=== PATIENT | female | born 1935 | race Caucasian/White ===

== ENCOUNTER 2018-06-29 08:06 | Emergency (ER) | payer OTHER, MEDICARE ==
[~2018-06-29] VITALS: Ht 170.2 cm; Wt 70.3 kg
[~2018-06-29 08:06] MED LIST: CALTRATE-600600 MG PO; EVISTA60 MG PO; NORCO 10/325 TA1 TA1 PO; SYNTHROID25 MCG PO; TENORMIN50 MG PO; ZETIA10 MG PO
[2018-06-29 08:07] VITALS: Ht 170.2 cm; Wt 70.3 kg
[2018-06-29 09:30] LABS: BASOPHILS 0.2 % (0-2); EOSINOPHILS 0 % (0-7); HEMATOCRIT 41.3 % (36.0-48.0); IMMATURE GRANULOCYTES 0.2 % (0-5); LYMPHOCYTES 15.6 % (15-50); MCH 29.6 pg (26.0-34.0); MCHC 33.9 g/dL (31.0-37.0); MCV 87.3 fL (80.0-100.0); MEAN PLATELET VOLUME 12.1 fL (7.4-10.4); MONOCYTES 12.9 % (2-11); NEUTROPHILS 71.1 % (40-80); PLATELET COUNT 138 10x3/uL (130-400); RBC 4.73 10x6/uL (4.00-5.40); RDW 12.5 % (11.5-14.5); WBC 4.7 10x3/uL (4.8-10.8)
[2018-06-29 09:43] LABS: ALBUMIN 2.9 g/dL (3.4-5.0); ANION GAP 15.1 mmol/L (8-16); BILIRUBIN - TOTAL 0.58 mg/dL (0.2-1.3); CALCIUM 8.6 mg/dL (8.5-10.1); CARBON DIOXIDE 24.7 mmol/L (21.0-32.0); CREATININE - SERUM 0.9 mg/dL (0.6-1.3); POTASSIUM - SERUM 3.8 mmol/L (3.5-5.1); PROTEIN - SERUM 7.3 g/dL (6.4-8.2)
[2018-06-29 10:01] LABS: APPEARANCE CLEAR (CLEAR); BILIRUBIN NEGATIVE (NEGATIVE); COLOR YELLOW (YELLOW); GLUCOSE NEGATIVE (NEGATIVE); KETONE MODERATE mg/dL (NEGATIVE); NITRITE NEGATIVE (NEGATIVE); PROTEIN NEGATIVE (NEGATIVE); SPECIFIC GRAVITY 1.025 (1.005-1.020); UROBILINOGEN NORMAL (NORMAL)
[2018-06-29] MEDS ORDERED: TAMIFLU75 MG PO (11:44)
[2018-06-29 14:14] VITALS: BP 151/88
== END 2018-06-29 12:53 ==
LOC: D.ER 08:06
PROVIDERS: Family Medicine
DX: J09.X2 Influenza due to identified novel influenza A virus with other respiratory manifestations (principal); E86.0 Dehydration; R05 Cough; R41.0 Disorientation, unspecified

== ENCOUNTER 2018-07-07 18:15 | Inpatient (IN) | payer MEDICARE, OTHER ==
[~2018-07-07] VITALS: Ht 170.2 cm; Wt 68.0 kg
[~2018-07-07 18:15] MED LIST changes: +TAMIFLU75 MG PO
[2018-07-07 19:00] VITALS: BP 148/82
--- NOTE | 2018-07-07 19:02 | NUR ---
PT RESTING ON BED. PT AFEBRILE AT THIS TIME, PT TEMP 98.8.
[2018-07-07 19:05] LABS: APPEARANCE HAZY (CLEAR); BILIRUBIN NEGATIVE (NEGATIVE); COLOR YELLOW (YELLOW); GLUCOSE NEGATIVE (NEGATIVE); KETONE SMALL mg/dL (NEGATIVE); NITRITE NEGATIVE (NEGATIVE); PROTEIN NEGATIVE (NEGATIVE); SPECIFIC GRAVITY 1.015 (1.005-1.020); UROBILINOGEN NORMAL (NORMAL)
[2018-07-07 19:28] LABS: BACTERIA MODERATE /hpf (NONE SEEN); EPITHELIAL CELLS OCC /hpf (0-5); RED CELLS - URINE 0-5 /hpf (0-5); WHITE CELLS - URINE >50 /hpf (0-5)
[2018-07-07 19:38] LABS: BASOPHILS 0.2 % (0-2); EOSINOPHILS 0 % (0-7); HEMOGLOBIN 13.6 g/dL (12-16); IMMATURE GRANULOCYTES 0.4 % (0-5); MCH 29.9 pg (26.0-34.0); MCHC 34.9 g/dL (31.0-37.0); MCV 85.7 fL (80.0-100.0); MEAN PLATELET VOLUME 11.1 fL (7.4-10.4); MONOCYTES 9.7 % (2-11); NEUTROPHILS 68.7 % (40-80); RBC 4.55 10x6/uL (4.00-5.40); RDW 12.4 % (11.5-14.5); WBC 5.7 10x3/uL (4.8-10.8)
[2018-07-07 19:38] LABS: ALBUMIN 2.7 g/dL (3.4-5.0); BILIRUBIN - TOTAL 0.6 mg/dL (0.2-1.3); CALCIUM 8.6 mg/dL (8.5-10.1); CARBON DIOXIDE 25.8 mmol/L (21.0-32.0); CREATININE - SERUM 0.9 mg/dL (0.6-1.3); POTASSIUM - SERUM 3.8 mmol/L (3.5-5.1); PROTEIN - SERUM 7.1 g/dL (6.4-8.2)
[2018-07-07 19:39] LABS: PLATELET COUNT 169 10x3/uL (130-400)
--- NOTE | 2018-07-07 20:20 | NUR ---
PT ASSISTED TO BEDSIDE COMMODE. PT TOLERATED WELL.
--- NOTE | 2018-07-07 20:38 | NUR ---
PT RESTING ON BED, PT UPDATED ON PLAN OF CARE. NO S/S OF ACUTE DISTRESS NOTED AT THIS TIME.
[2018-07-07 20:42] LABS: CREATINE KINASE 53 UL (21-215); MAGNESIUM - SERUM 1.6 mg/dL (1.8-2.4); PRO BNP 706 pg/mL (0-450)
[2018-07-07 20:43] LABS: TROPONIN-I < 0.017 ng/mL (0.000-0.060)
[2018-07-07 21:06] LABS: CKMB 2.9 U/L (0.0-3.6)
--- NOTE | 2018-07-07 21:30 | NUR ---
ROCEPHIN INFUSION COMPLETE
--- NOTE | 2018-07-07 22:28 | NUR ---
RECIEVED REPORT FROM ELLIOTT SCHNEIDER IN ER. BROUGHT TO FLOOR AT 2155 ON STRETCHER BY HOSPITAL STAFF. ALERT AND ORIENTED AND UP AD QUANG. VERY [place]. PLACED IN DROPLET ISOLATION R/T POSITIVE FOR INFLUENZA A AND B. IV TO LEFT FA WITH NS INFUSING AT 125/HR. REPORTED BY ER SCREAMS WHEN TOUCHED. UNSURE IF ITS FROM PAIN OR SCARED D/T BEING [place]AR[place].
--- NOTE | 2018-07-07 23:06 | NUR ---
RECIEVED REPORT FROM ELLIOTT SCHNEIDER IN ER. ARRIVED ON STRETCHER ASSISTED BY STAFF. ALERT AND CONFUSED. UNABLE TO TELL HER NAME,PLACE YEAR OR WHY SHE IS HERE. HAS A FREQUENT COUGH. PLACED IN DROPLET ISOLATION R/T POSITIVE FOR INFLUENZA A AND B. IV TO LEFT FA INFUSING NS AT 125/HR. AZITHROMAX STARTED AND INFUSING AT THIS TIME. PT DOES SCREAM ( NOT LOUD) WHEN TOUCHED. PICKING AT IV SITE. EXPLAINED TO LEAVE IT ALONE SO IT DOES'NT HAVE TO BE RELACED. UNSURE IF SHE UNDERSTANDS AT THIS TIME. VERY FOND DU LAC AND WILL REPEAT WHAT YOU SAY IF ASKED. UNABLE TO ANSWER QUESTIONS AT THIS TIME.
[2018-07-08 00:52] VITALS: BP 140/62; BMI 23.7
[2018-07-08 04:00] VITALS: BP 149/62
[2018-07-08 05:15] LABS: BASOPHILS 0.2 % (0-2); EOSINOPHILS 0.2 % (0-7); HEMATOCRIT 37.2 % (36.0-48.0); HEMOGLOBIN 12.8 g/dL (12-16); IMMATURE GRANULOCYTES 0.6 % (0-5); MCH 29.7 pg (26.0-34.0); MCHC 34.4 g/dL (31.0-37.0); MCV 86.3 fL (80.0-100.0); MEAN PLATELET VOLUME 11.4 fL (7.4-10.4); MONOCYTES 9.3 % (2-11); NEUTROPHILS 62.7 % (40-80); PLATELET COUNT 169 10x3/uL (130-400); RBC 4.31 10x6/uL (4.00-5.40); RDW 12.5 % (11.5-14.5); WBC 5.2 10x3/uL (4.8-10.8)
[2018-07-08 05:36] LABS: CALC OSMOLALITY 270 mosm/kg (275-300); CARBON DIOXIDE 20.5 mmol/L (21.0-32.0); CHLORIDE - SERUM 101 mmol/L (98-107); CREATININE - SERUM 0.6 mg/dL (0.6-1.3); GLUCOSE 105 mg/dL (74-106); POTASSIUM - SERUM 3.6 mmol/L (3.5-5.1); SODIUM 136 mmol/L (136-145); UREA NITROGEN 10 mg/dL (7-18); eGFR NON AFRICAN AMERICAN > 90 mL/min (90-120)
[2018-07-08 07:30] VITALS: BP 151/64
--- NOTE | 2018-07-08 08:48 | NUR ---
AM MEDS GIVEN AT THIS TIME. PT HAD NO TROUBLE SWALLOWING PILL. IVPB ROCEPHIN HUNG AT THIS TIME. HELPED PT TO BATHROOM AND BACK TO BED. PT DENIES ANY OTHER NEEDS AT THIS TIME. CALL LIGHT IN REACH, BED ALARM ON. NAD NOTED, WILL CONTINUE TO MONITOR.
[2018-07-08 11:30] VITALS: BP 163/76
--- NOTE | 2018-07-08 12:00 | NUR ---
HELPED PT TO BATHROOM AND BACK TO BED, PT DENIES ANY OTHER NEEDS AT THIS TIME. CALL LIGHT IN REACH, BED ALARM ON, NAD NOTED, WILL CONTINUE TO MONITOR.
--- NOTE | 2018-07-08 13:51 | NUR ---
PT RESTING COMFORTABLY IN BED, CALL LIGHT IN REACH, BED ALARM ON, NAD NOTED, WILL CONTINUE TO MONITOR.
[2018-07-08 15:30] VITALS: BP 160/78
--- NOTE | 2018-07-08 15:30 | NUR ---
PROVIDED SUPA WADE WITH PT'S SON'S PHONE NUMBER, WHO WANTS AN UPDATE REGARDING PT'S CONDITION.
--- NOTE | 2018-07-08 19:30 | NUR ---
RECEIVED REPORT, WILL ASSUME CARE OF PT, ASSIST PT TO RESTROOM, CHANGED LINEN, ASSIST PT BACK TO BED, BED IS LOW, SRX2, CALL LIGHT IN REACH, WILL CONTINUE PLAN OF CARE, BED ALARM IS ON
[2018-07-08 21:53] VITALS: BP 164/70
--- NOTE | 2018-07-09 02:29 | NUR ---
I have reviewed this patient and I concur with the Shift Assessment completed by the Licensed Practical Nurse today this shift.
--- NOTE | 2018-07-09 03:34 | NUR ---
BED ALARM GOING OFF, ASSISTED PT TO BATHROOM AND BACK TO BED, CALL LIGHT IN REACH, BED ALARM IS BACK ON
[2018-07-09 04:53] VITALS: BP 183/87
[2018-07-09 07:18] LABS: ANION GAP 17.9 mmol/L (8-16); CALCIUM 8.7 mg/dL (8.5-10.1); CARBON DIOXIDE 22.5 mmol/L (21.0-32.0); MAGNESIUM - SERUM 1.8 mg/dL (1.8-2.4); POTASSIUM - SERUM 3.4 mmol/L (3.5-5.1)
[2018-07-09 07:20] LABS: CREATININE - SERUM 0.8 mg/dL (0.6-1.3)
[2018-07-09 07:35] LABS: BASOPHILS 0.2 % (0-2); EOSINOPHILS 0 % (0-7); HEMATOCRIT 41.5 % (36.0-48.0); HEMOGLOBIN 14.1 g/dL (12-16); IMMATURE GRANULOCYTES 0.8 % (0-5); LYMPHOCYTES 15.9 % (15-50); MCV 85.2 fL (80.0-100.0); MEAN PLATELET VOLUME 12.1 fL (7.4-10.4); MONOCYTES 1.5 % (2-11); NEUTROPHILS 81.6 % (40-80); PLATELET COUNT 173 10x3/uL (130-400); RBC 4.87 10x6/uL (4.00-5.40); RDW 12.6 % (11.5-14.5); WBC 4.7 10x3/uL (4.8-10.8)
[2018-07-09 08:50] VITALS: BP 196/100
[2018-07-09 11:53] VITALS: BP 171/79
--- NOTE | 2018-07-09 12:00 | NUR ---
ALERT AND ORIENTED X4. [place]. OBSERVED UP OUT OF BED WITHOUT ASSISTANCE, TURNING BED ALARM OFF. IV TUBING TWISTED. DISCONNECT IV INFUSION. ENCOURAGE TO CALL FOR HELP WHEN OUT OF BED TO PREVENT FALL. PATIENT LAUGHS SAYING, "OK." CONTINUE PLAN OF CARE AND SAFETY PRECAUTIONS.
[2018-07-09 12:42] VITALS: Ht 170.2 cm; Wt 68.0 kg
[2018-07-09 15:42] VITALS: BP 165/94
--- NOTE | 2018-07-09 16:56 | NUR ---
FAMILY RETURN TO ROOM. PATIENT UP OUT OF BED. REQUEST FALL PRECAUTIONS WAIVER FORM SIGNED DUE TO NONCOMPLIANCE WITH PRECAUTIONS. ROBERT GIRON) REFUSED SIGNING. INITIATE FALL PRECAUTIONS AND ENCOURAGE TO USE CALL LIGHT. BED ALARM ON. CONTINUE PLAN OF CARE AND SAFETY PRECAUTIONS.
--- NOTE | 2018-07-09 17:25 | NUR ---
PATIENT ARGUING WITH FAMILY ABOUT GOING OUTSIDE ROOM. EXPLAIN TO PATIENT WHY UNABLE TO LEAVE ROOM DUE TO RISK FOR INFECTING OTHERS IN THE HOSPITAL. PATIENT LAUGHS WHILE RETURNING TO BED.
--- NOTE | 2018-07-09 18:55 | NUR ---
1819-BEGAN LEAVING ROOM, AMBULATING IN [place]. DIRECT BACK TO ROOM. EXPLAIN RISK FOR OTHER PEOPLE TO GET FLU IF OUT IN [place]. ASSIST BACK TO BED. BED ALARM ON. POA REFUSE TO STAY WITH PATIENT. 1824-LEAVING ROOM AGAIN. ASSIST BACK TO ROOM. PATIENT BECOMES COMBATIVE. CALL INFORMING OF CURRENT SITUATION. JASS BED ORDERED AND GEODON IM 5mg. 1834-GEODON ADMINISTERED ORDERED. PATIENT KICKING AND HITTING STAFF. ATTEMPT TO CALM PATIENT UNSUCCESSFUL. CONTIUES TRYING TO LEAVE ROOM. WAITING FOR JASS BED TO ARRIVE TO FLOOR. TWO PERSON MONITORING AT BEDSIDE.
--- NOTE | 2018-07-09 20:00 | NUR ---
RECIEVED IN JASS BED. CONTINUES TO CONFUSED. ALERT AND ORIENTED TO PERSON ONLY. REPORTED THAT GOT HERSELF DRESSED AND GRABBED HER PURSE AND STATED SHE WAS LEAVING. POA REFUSED TO SIGN AMA OR STAY AT BEDSIDE. AWARE OF NEW ORDER FOR JASS BED. PT YELLING OUT FOR SOME TO HELP HER. UNABLE TO REDIRECT AT THIS TIME. NO S/S OF PAIN OBSERVED.
[2018-07-09 21:03] VITALS: BP 173/80
--- NOTE | 2018-07-09 22:00 | NUR ---
RESTING IN JASS BED WITH EYES OPEN. ALERT AND ORIENTED TO PERSON ONLY. MUCH CALMER. TOOK MEDICATIONS WITHOUT DIFFICULTY. FLUIDS OFFERED AND ACCEPTED. DENIES ANY PAIN. IV TO RIGHT WRIST WITH AZITHROMYCIN INFUSING AT THIS TIME.
--- NOTE | 2018-07-09 23:41 | NUR ---
PT PULLED IV OUT. CLOTHING AND BEDDING WET. CHANGED CLOTHING AND BEDDING. PT STATES ' I LIKE THESE OLD TENTS".
[2018-07-10] VITALS: BP 145/64
--- NOTE | 2018-07-10 02:09 | NUR ---
RESTING IN BED WITH EYES CLOSED. NO S/S OF DISTRESS OBSERVED. RIGHT FA REMAINS SWOLLEN AND RED. NO IV ACCESS AT THIS TIME.
--- NOTE | 2018-07-10 02:35 | NUR ---
RESTING IN BED WITH EYES CLOSED AT THIS TIME. RESP EVEN AND UNLABORED. NO S/S OF DISTRESS OBSERVED.
--- NOTE | 2018-07-10 04:00 | NUR ---
RESTING IN BED WITH EYES CLOSED. NO S/S OF DISTRESS OBSERVED.
--- NOTE | 2018-07-10 05:34 | NUR ---
REFUSED AM MEDICATION. NO IV ACCESS. WILL REPORT TO ONCOMMING. DIANNE STATED PT BECAME COMBATIVE WHEN ATTEMPTING TO CHANGE HER THIS AM.
[2018-07-10 06:25] VITALS: BP 178/94
--- NOTE | 2018-07-10 07:13 | NUR ---
ALERT AND ORIENTED X2. SITTING UP IN JASS BED. ASKING WHAT HAPPENED. EXPLAIN EVENTS LEADING TO JASS BED AND PATIENT BEING COMBATIVE. VITALS STABLE. RECIEVING UPDRAFT TREATMENT. ZIPPERS CLOSED ON JASS BED. CONTINUE PLAN OF CARE AND SAFETY PRECAUTIONS.
[2018-07-10 08:01] LABS: ANION GAP 17.9 mmol/L (8-16); CALCIUM 9.1 mg/dL (8.5-10.1); CARBON DIOXIDE 21.1 mmol/L (21.0-32.0); MAGNESIUM - SERUM 1.9 mg/dL (1.8-2.4)
[2018-07-10 08:04] LABS: HEMATOCRIT 38.9 % (36.0-48.0); HEMOGLOBIN 13.5 g/dL (12-16); MCH 29.3 pg (26.0-34.0); MCHC 34.7 g/dL (31.0-37.0); MCV 84.4 fL (80.0-100.0); MEAN PLATELET VOLUME 11.8 fL (7.4-10.4); PLATELET COUNT 240 10x3/uL (130-400); RBC 4.61 10x6/uL (4.00-5.40); RDW 12.7 % (11.5-14.5)
--- NOTE | 2018-07-10 09:13 | NUR ---
ALERT AND ORIENTED X3. ASSIST OOB TO RESTROOM. ASSIST TO CHAIR WITH JSAS ALARM ON TO EAT BREAKFAST. CONTINUE TO MONITOR AND SAFETY PRECAUTIONS.
[2018-07-10 09:24] LABS: LYMPHOCYTES 9 % (15-50); MONOCYTES 12 % (2-11); NEUTROPHILS 75 % (40-80); PLATELET ESTIMATE NORMAL
[2018-07-10 09:25] LABS: ANISOCYTOSIS OCC
--- NOTE | 2018-07-10 11:30 | NUR ---
SITTING UP IN CHAIR. ALERT TO PERSON AND PLACE. [place]. JASS ALARM ON. DENIES ANY NEEDS. CONTINUE PLAN OF CARE AND SAFETY PRECAUTIONS.
[2018-07-10 13:13] VITALS: BP 160/77
--- NOTE | 2018-07-10 13:30 | NUR ---
ALERT. CHAIR ALARM GOING OFF. TRYING TO LEAVE ROOM. REDIRECT IN ROOM. RETURN TO JASS BED. REMAINS FREE FROM INJURY. CONTINUE PLAN OF CARE AND SAFETY PRECAUTIONS.
--- NOTE | 2018-07-10 14:03 | MORECARE ---
CASE MANAGEMENT DISCHARGE SUMMARY PATIENT: JENNIFER ROGERS UNIT: [id number] ADM DATE: 07/07/18 AGE: 82 : 37 SEX: F ROOM/BED: D.210 AUTHOR: AIDAN MARTIN PHYSICIAN: REFERRING PHYSICIAN: ZENOBIA LEYVA MD DATE OF SERVICE: 07/10/18 Discharge Plan Patient Name: JENNIFER ROGERS Facility: [facility]:[place] : 1935 Planned Disposition: Anticipated Discharge Date: Discharge Date: Expected LOS: Initial Reviewer: [email or web address] Initial Review Date: 07/10/2018 Generated: 07/10/18 3:03 pm Patient Name: JENNIFER ROGERS Page 32713 at 1403 All edits/amendments must be made on the electronic document DICTATION DATE: 07/10/18 140 HEAD MEN'S TENNIS COACH: JURGEN 07/10/18 1403 RPT#: [id number] DC DATE: STATUS: ADM IN [facility] [address] [place] [address] END OF REPORT
--- NOTE | 2018-07-10 14:11 | MORECARE ---
CASE MANAGEMENT DISCHARGE SUMMARY PATIENT: JENNIFER ROGERS UNIT: [id number] ADM DATE: 07/07/18 AGE: 82 : 37 SEX: F ROOM/BED: D.0299 AUTHOR: VERONICA,DOC PHYSICIAN: REFERRING PHYSICIAN: ZENOBIA LEYVA MD DATE OF SERVICE: 07/10/18 Discharge Plan Patient Name: JENNIFER ROGERS Facility: [facility]:[place] : 1935 Planned Disposition: Anticipated Discharge Date: Discharge Date: Expected LOS: Initial Reviewer: [email or web address] Initial Review Date: 07/10/2018 Generated: 07/10/18 3:11 pm Comments DCP- Discharge Planning Updated by [email or web address]: Cornelia Fong on 07/10/18 1:[address] Patient Name: JENNIFER ROGERS Admission Status: ER Accout number: [id number] Admission Date: 07-07-2018 : 1935 Admission Diagnosis:SHORTNESS OF BREATH Attending: ZENOBIA LEYVA Current LOS: 3 Anticipated DC Date: Planned Disposition: Primary Insurance: MEDICARE PART A ONLY Discharge Planning Comments: CM MET WITH PATIENT'S QUINTON/CAMMY SAN ABOUT DC PLANNING/NEEDS. SHE STATES SHE WOULD LIKE HER AUNT TO BE DISCHARGED BACK TO [facility] TODAY. STATES SHE WILL BE HERE ANOTHER WEEK AND COULD CHECK ON HER. SHE THINKS THE HOSPITAL STAY IS CAUSING HER CONFUSION. RN IS CONTACTING MD TO SEE IF SHE CAN DC TODAY. CM WILL FOLLOW AND ASSIST NEEDED WITH DC PLANNING/NEEDS. Payroll Officer: Cornelia Fong DCPIA - Discharge Planning Initial Assessment Updated by [id number]: Cornelia Fong on 07/10/18 2:04 pm * PCP JACKIE * Preadmission Environment Assisted Living * Facility Name [facility] * ADLs Partial Dependent * Partial ADLs (Assistance needed) Medication Management * Equipment Nebulizer Rolling Walker * List name and contact numbers for known caregivers / representatives who currently or will assist patient after discharge: LAURA AMES, * Community resources currently utilized Assisted Living * Additional services required to return to the preadmission environment? No * Can the patient safely return to the preadmission environment? Yes * Has this patient been hospitalized within the prior 30 days at any hospital? No Last DP export: 07/10/18 1:03 p Patient Name: JENNIFER ROGERS Page [phone] at 1411 All edits/amendments must be made on the electronic document DICTATION DATE: 07/10/181410 HUMAN RESOURCE OFFICER: JURGEN 07/10/181410 RPT#: [id number] DC DATE: STATUS: ADM IN [facility] [address] [place] [address] END OF REPORT
[2018-07-10 16:41] VITALS: BP 168/78
[2018-07-10] MEDS ORDERED: ZITHROMAX500 MG PO (17:30)
--- NOTE | 2018-07-10 18:02 | NUR ---
SPOKE WITH MITZI AT [facility] [phone]. OK TO ACCEPT BACK TO FACILITY. [facility] PATRICK WILL TRANSPORT. KRISTIE CALLED INTO [facility] ON AIRPORT PER CELINA'S REQUEST.
--- NOTE | 2018-07-10 18:37 | NUR ---
DISCHARGE INSTRUCTIONS GIVEN TO CELINA GIRON). DISCHARGE PAPERS SIGNED ON CHART. ESCORT TO RIDE VIA WHEELCHAIR. REMAINS FREE FROM INJURY.
--- NOTE | 2018-07-11 10:37 | MORECARE ---
CASE MANAGEMENT DISCHARGE SUMMARY PATIENT: JENNIFER ROGERS UNIT: [id number] ADM DATE: 07/07/18 AGE: 82 : 37 SEX: F ROOM/BED: D.8232 AUTHOR: AIDAN MARTIN PHYSICIAN: REFERRING PHYSICIAN: ZENOBIA LEYVA MD DATE OF SERVICE: 07/11/18 Discharge Plan Patient Name: JENNIFER ROGERS Facility: [facility]:[place] : 1935 Planned Disposition: Assisted Living Anticipated Discharge Date: 07/11/18 Discharge Date: 07/10/2018 Expected LOS: 4 Initial Reviewer: [email or web address] Initial Review Date: 07/10/2018 Generated: 07/11/18 11:37 am Comments DCP- Discharge Planning Updated by [email or web address]: Cornelia Fong on 07/10/18 1:[address] Patient Name: JENNIFER ROGERS Admission Status: ER Accout number: [id number] Admission Date: 07-07-2018 : 1935 Admission Diagnosis:SHORTNESS OF BREATH Attending: ZENOBIA LEYVA Current LOS: 3 Anticipated DC Date: Planned Disposition: Primary Insurance: MEDICARE PART A ONLY Discharge Planning Comments: CM MET WITH PATIENT'S QUINTON/CAMMY SAN ABOUT DC PLANNING/NEEDS. SHE STATES SHE WOULD LIKE HER AUNT TO BE DISCHARGED BACK TO [facility] TODAY. STATES SHE WILL BE HERE ANOTHER WEEK AND COULD CHECK ON HER. SHE THINKS THE HOSPITAL STAY IS CAUSING HER CONFUSION. RN IS CONTACTING MD TO SEE IF SHE CAN DC TODAY. CM WILL FOLLOW AND ASSIST NEEDED WITH DC PLANNING/NEEDS. Network Systems Engineer: Cornelia Fong DCPIA - Discharge Planning Initial Assessment Updated by [email or web address]: Cornelia Fong on 07/10/18 2:04 pm * PCP JACKIE * Preadmission Environment Assisted Living * Facility Name [facility] * ADLs Partial Dependent * Partial ADLs (Assistance needed) Medication Management * Equipment Nebulizer Rolling Walker * List name and contact numbers for known caregivers / representatives who currently or will assist patient after discharge: LAURA AMES, * Community resources currently utilized Assisted Living * Additional services required to return to the preadmission environment? No * Can the patient safely return to the preadmission environment? Yes * Has this patient been hospitalized within the prior 30 days at any hospital? No Coverage Notice Reviewer: [email or web address] Shaka Fong Notice Issued Date-Time: 07/10/2018 16:59 Notice Type: IM Discharge Notice Notice Delivered To: Family Member Relationship to Patient: Niece Longwall Headgate Operator Name: poa Delivery Method: HAND - Hand Delivered Carol Days: Prior Verbal Notification: Recipient Understood Notice: Yes Recipient Signature: Yes Med Rec Note Co-signed by Attending: Coverage Notice Comment: Last DP export: 07/10/18 1:11 p Patient Name: JENNIFER ROGERS Page [phone] at 1037 All edits/amendments must be made on the electronic document DICTATION DATE: 07/11/18 1036 RIB STIFFENER AND HEEL DIPPER: JURGEN 07/11/18 1036 RPT#: [id number] DC DATE:07/10/18 STATUS: DIS IN [facility] [address] [place] [address] END OF REPORT
== END 2018-07-10 18:38 | disposition home or self-care (01) | DRG 193 ==
LOC: D.ER 18:15 → D.M2 20:42 → D.EDHOLD 20:42 → D.M2 21:32
PROVIDERS: Family Medicine; ADMIT Emergency Medicine; ATTEND Emergency Medicine
DX: J10.00 Influenza due to other identified influenza virus with unspecified type of pneumonia (principal); J96.01 Acute respiratory failure with hypoxia; G92 Toxic encephalopathy; J44.1 Chronic obstructive pulmonary disease with (acute) exacerbation; J44.0 Chronic obstructive pulmonary disease with (acute) lower respiratory infection; N39.0 Urinary tract infection, site not specified; F17.213 Nicotine dependence, cigarettes, with withdrawal; N17.9 Acute kidney failure, unspecified; I10 Essential (primary) hypertension; E78.5 Hyperlipidemia, unspecified; E03.9 Hypothyroidism, unspecified

== ENCOUNTER 2018-07-14 22:39 | Inpatient (IN) | payer MEDICARE, OTHER ==
[~2018-07-14] VITALS: Ht 170.2 cm; Wt 81.6 kg
[~2018-07-14 22:39] MED LIST changes: +ZITHROMAX500 MG PO
[2018-07-14] MEDS ORDERED: KEFLEX500 MG PO (22:47)
[2018-07-14] MEDS ORDERED: LISINOPRIL20 MG PO (22:47)
[2018-07-14] MEDS ORDERED: BREO ELLIPTA 11 EACH INH (22:48)
[2018-07-14] MEDS ORDERED: IPRAT-ALBUT 0.5-3 ML UPD (22:48)
[2018-07-14 23:12] LABS: BASOPHILS 0.1 % (0-2); EOSINOPHILS 0 % (0-7); HEMATOCRIT 44.3 % (36.0-48.0); HEMOGLOBIN 15.1 g/dL (12-16); IMMATURE GRANULOCYTES 0.5 % (0-5); LYMPHOCYTES 10.7 % (15-50); MCHC 34.1 g/dL (31.0-37.0); MCV 88.1 fL (80.0-100.0); MEAN PLATELET VOLUME 11.2 fL (7.4-10.4); NEUTROPHILS 84.7 % (40-80); PLATELET COUNT 198 10x3/uL (130-400); RBC 5.03 10x6/uL (4.00-5.40); RDW 12.7 % (11.5-14.5); WBC 18.8 10x3/uL (4.8-10.8)
[2018-07-14 23:28] LABS: ALBUMIN 2.4 g/dL (3.4-5.0); ALKALINE PHOSPHATASE 58 U/L (46-116); ALT (SGPT) 22 U/L (10-68); BILIRUBIN - TOTAL 0.69 mg/dL (0.2-1.3); CALC OSMOLALITY 278 mosm/kg (275-300); CALCIUM 8.6 mg/dL (8.5-10.1); CARBON DIOXIDE 27.8 mmol/L (21.0-32.0); CHLORIDE - SERUM 100 mmol/L (98-107); CREATININE - SERUM 0.9 mg/dL (0.6-1.3); GLUCOSE 167 mg/dL (74-106); POTASSIUM - SERUM 3.9 mmol/L (3.5-5.1); PROTEIN - SERUM 6.1 g/dL (6.4-8.2); SODIUM 136 mmol/L (136-145); UREA NITROGEN 20 mg/dL (7-18); eGFR NON AFRICAN AMERICAN 64 mL/min (90-120)
[2018-07-14 23:30] VITALS: BP 127/66
[2018-07-14 23:34] LABS: LIPASE 151 U/L (73-393); PRO BNP 708 pg/mL (0-450); TROPONIN-I < 0.017 ng/mL (0.000-0.060)
--- NOTE | 2018-07-14 23:44 | NUR ---
IN/OUT PERFORMED ON PT. URINE SPECIMEN SENT TO LAB.
[2018-07-14 23:52] LABS: APPEARANCE CLEAR (CLEAR); BILIRUBIN NEGATIVE (NEGATIVE); COLOR YELLOW (YELLOW); GLUCOSE NEGATIVE (NEGATIVE); KETONE NEGATIVE (NEGATIVE); NITRITE NEGATIVE (NEGATIVE); PROTEIN NEGATIVE (NEGATIVE); SPECIFIC GRAVITY 1.015 (1.005-1.020); UROBILINOGEN NORMAL (NORMAL)
[2018-07-15] VITALS (7 sets, daily range): BP systolic 119–142; BP diastolic 53–69; BMI 28.2
--- NOTE | 2018-07-15 00:30 | NUR ---
PT SLEEPING, PT FAMILY AT BEDSIDE.
--- NOTE | 2018-07-15 01:18 | NUR ---
PT SLEEPING, NO S/S OF ACUTE DISTRESS NOTED AT THIS TIME. VS WNL. PT FAMILY NO LONGER AT BEDSIDE. PT NIECE/POA JASWINDER ASCENCIO [phone].
--- NOTE | 2018-07-15 01:46 | NUR ---
PT ARRIVED ON UNIT VIA STRETCHER ESCORTED BY ER STAFF. TRANSFERRED TO BED AND POSITIONED FOR COMFORT. YELLOW GOWN, YELLOW BRACELET, AND GRIPPER SOCKS PLACED ON PT. HE CLOTHING WAS PLACED IN A BELONGINGS BAG AND PUT IN CLOSET. BED ALARM IN PLACE AND SIDE RAILS UP X3 FOR SAFETY.
--- NOTE | 2018-07-15 02:13 | NUR ---
ADMISSION ASSESSMENT AND HISTORY COMPLETE.
[2018-07-15 06:26] LABS: BASOPHILS 0.1 % (0-2); EOSINOPHILS 0.1 % (0-7); HEMATOCRIT 40.6 % (36.0-48.0); HEMOGLOBIN 13.7 g/dL (12-16); IMMATURE GRANULOCYTES 0.6 % (0-5); LYMPHOCYTES 25.5 % (15-50); MCH 29.4 pg (26.0-34.0); MCHC 33.7 g/dL (31.0-37.0); MCV 87.1 fL (80.0-100.0); MEAN PLATELET VOLUME 11.8 fL (7.4-10.4); MONOCYTES 5.6 % (2-11); NEUTROPHILS 68.1 % (40-80); PLATELET COUNT 175 10x3/uL (130-400); RBC 4.66 10x6/uL (4.00-5.40); RDW 12.9 % (11.5-14.5); WBC 10.1 10x3/uL (4.8-10.8)
[2018-07-15 06:33] LABS: ALBUMIN 2.3 g/dL (3.4-5.0); ANION GAP 11.3 mmol/L (8-16); BILIRUBIN - TOTAL 0.75 mg/dL (0.2-1.3); CALCIUM 8.4 mg/dL (8.5-10.1); CARBON DIOXIDE 27.5 mmol/L (21.0-32.0); CREATININE - SERUM 1.1 mg/dL (0.6-1.3); POTASSIUM - SERUM 3.8 mmol/L (3.5-5.1); PROTEIN - SERUM 5.9 g/dL (6.4-8.2)
--- NOTE | 2018-07-15 08:27 | NUR ---
PT RESTING EYES CLOSED NO SIGNS OF DISTRESS NOTED, FALL PRECAUTIONS IN PLACE WILL CONTINUE TO MONITOR CL IN REACH
--- NOTE | 2018-07-15 18:45 | NUR ---
I have reviewed this patient and I concur with the Shift Assessment completed by the Licensed Practical Nurse today this shift.
--- NOTE | 2018-07-15 21:00 | NUR ---
PT ALERT & ORIENTED. ASSESSMENT COMPLETE PER FLOW-SHEET. GAVE SCHEDULED MEDS. REMINDED PT TO CALL FOR ASSISTANCE. NO OTHER NEEDS. WILL CONTINUE TO MONITOR.
[2018-07-16 04:00] VITALS: BP 124/41
[2018-07-16 07:00] LABS: ANION GAP 11.1 mmol/L (8-16); CALCIUM 7.9 mg/dL (8.5-10.1); CARBON DIOXIDE 27.7 mmol/L (21.0-32.0); POTASSIUM - SERUM 3.8 mmol/L (3.5-5.1)
[2018-07-16 07:02] LABS: BASOPHILS 0.2 % (0-2); EOSINOPHILS 0.3 % (0-7); HEMATOCRIT 37.1 % (36.0-48.0); HEMOGLOBIN 12.5 g/dL (12-16); IMMATURE GRANULOCYTES 0.3 % (0-5); LYMPHOCYTES 24.4 % (15-50); MCH 29.6 pg (26.0-34.0); MCHC 33.7 g/dL (31.0-37.0); MCV 87.9 fL (80.0-100.0); MEAN PLATELET VOLUME 11.9 fL (7.4-10.4); MONOCYTES 8.4 % (2-11); NEUTROPHILS 66.4 % (40-80); PLATELET COUNT 166 10x3/uL (130-400); RBC 4.22 10x6/uL (4.00-5.40)
[2018-07-16 07:05] LABS: CREATININE - SERUM 0.8 mg/dL (0.6-1.3)
[2018-07-16 07:07] LABS: WBC 5.7 10x3/uL (4.8-10.8)
--- NOTE | 2018-07-16 08:12 | NUR ---
PATIENT WILL NOT TAKE BREATHING TX, TRIED TO GIVE TX WITH MOUTHPIECE BUT PT DID NOT UNDERSTAND BREATHING THROUGH MOUTH AND NOT NOSE, TRIED TO GIVE TX WITH MASK, PT DID NOT WANT MASK ON FACE, PT GOT VERY UPSET AND PUSHED MASK OFF. PT ALSO CAN NOT DO BREO. PT CAN NOT TAKE IN A DEEP ENOUGH BREATH TO ACTIVATE THE MEDICATION.
--- NOTE | 2018-07-16 08:40 | NUR ---
PT RESTING IN BED. INDICATES STAFF ENTERS SHE NEEDS TO GO TO BR. PT ASSISTED TO BATHROOM AND BACK TO BED X 1 STAFF. LIGHT RED VAGINAL DISCHARGE NOTED AT THIS TIME. RESP EVEN AND UNLABORED. IV TO LEFT WRIST WITH NS @ 75ML/HR INFUSING VIA PUMP. SITE WITHOUT REDNESS OR EDEMA. JASS BED ALARM IN PLACE. DENIES PAIN AT THIS TIME. CL WITHIN REACH. ENCOURAGED TO CALL WITH NEEDS.
[2018-07-16 09:31] VITALS: BP 118/53
--- NOTE | 2018-07-16 10:05 | MORECARE ---
CASE MANAGEMENT DISCHARGE SUMMARY PATIENT: JENNIFER ROGERS UNIT: [id number] ADM DATE: 07/15/18 AGE: 82 : 37 SEX: F ROOM/BED: D.2223 AUTHOR: AIDAN MARTIN PHYSICIAN: REFERRING PHYSICIAN: IONA YOUNG MD DATE OF SERVICE: 07/16/18 Discharge Plan Patient Name: JENNIFER ROGERS Facility: [facility]:[place] : 1935 Planned Disposition: Inpatient Rehab Facility Anticipated Discharge Date: Discharge Date: Expected LOS: Initial Reviewer: [email or web address] Initial Review Date: 07/15/2018 Generated: 07/16/18 11:05 am Patient Name: JENNIFER ROGERS Page [phone] at 1005 All edits/amendments must be made on the electronic document DICTATION DATE: 07/16/18 1004 WATER RESOURCES PROJECT MANAGER: JURGEN 07/16/18 1004 RPT#: [id number] DC DATE: STATUS: ADM IN [facility] [address] [place] [address] END OF REPORT
--- NOTE | 2018-07-16 10:26 | MORECARE ---
CASE MANAGEMENT DISCHARGE SUMMARY PATIENT: JENNIFER ROGERS UNIT: [id number] ADM DATE: 07/15/18 AGE: 82 : 37 SEX: F ROOM/BED: D.2223 AUTHOR: AIDAN MARTIN PHYSICIAN: REFERRING PHYSICIAN: IONA YOUNG MD DATE OF SERVICE: 07/16/18 Discharge Plan Patient Name: JENNIFER ROGERS Facility: [facility] : 1935 Planned Disposition: Inpatient Rehab Facility Anticipated Discharge Date: Discharge Date: Expected LOS: Initial Reviewer: [id number] Initial Review Date: 07/15/2018 Generated: 07/16/18 11:26 am Comments DCP- Discharge Planning Updated by [email or web address]: Ruthie Turner on 07/16/18 9:[address] LATE ENTRY 07/15/18 1300 CM MET W/ PATIENT'S NIECE AND POA, JASWINDER ASCENCIO. SHE HAD REQUESTED TO SPEAK WITH THE EVENING OR NIGHT NURSE SUPERVISOR. HER AUNT HAD BEEN LIVING AT [facility] PRIOR TO ADMISSION. SHE WAS JUST DISCHARGED 07/11/18. SHE WAS CONFUSED AND WEAK POST DISCHARGE. PRIOR TO HER ILLNESS SHE HAD MANAGED WELL PER THE NIECE. DISCUSSED DISCHARGE OPTIONS. WILL HAVE AN ACUTE REHAB EVAL AND SKILLED EVAL. THE NIECE WOULD LIKE [facility] FOR ACUTE REHAB AND [facility] FOR SKILLED REHAB IF NOT ACCEPTED FOR ACUTE. THE PATIENT'S FACE SHEET HAS HER EMERGENCY CONTACT. CM FAXED CORRECTION TO ADMISSION FOR CORRECTION. THE NIECE 'S CONTACT PHONE NUMBER IS [phone], JASWINDER ASCENCIO. THE NIECE IS VISITING FROM OUT OF STATE. SHE STATES SHE PROVIDED POA PAPERWORK THE LAST ADMISSION. PT'S ONLY OTHER LIVING RELATIVE IS HER BROTHER , CHAS HORNER. JULIO FAXED REFERRAL TO [facility]. PATIENT WILL NEED AND OT CONSULT AND REHAB PRESCREEN. DISCUSSED WITH WEEKDAY DIONY KIM. Last DP export: 07/16/18 9:05 a Patient Name: JENNIFER ROGERS Page [phone] at 1026 All edits/amendments must be made on the electronic document DICTATION DATE: 07/16/18 1025 BRIDGE MAINTAINER: JURGEN 07/16/18 1025 RPT#: [id number] DC DATE: STATUS: ADM IN [facility] [address] [place] [address] END OF REPORT
--- NOTE | 2018-07-16 12:34 | NUR ---
Rehab Prescreening Consult recieved and the patient was visited. She is very confused and does not answer questions appropriatley. Discussed with the CM Pippa Max who has a call out to the johnathan and CAMMY Blanco to discuss her discharge disposition as they are also looking into a SNF facility. Su Hermosillo RN Clinical Liaison, Rehab
[2018-07-16 13:00] VITALS: BP 145/62
--- NOTE | 2018-07-16 13:30 | NUR ---
PT FAMILY PRESENT VOICES THAT PT REPORTS BEING COLD AND CHILLED. TEMP ASSESSED AT THIS TIME. 97.7 ORAL. PROVIDED WARM BLANKET. WILL CONTINUE TO MONITOR.
--- NOTE | 2018-07-16 14:32 | MORECARE ---
CASE MANAGEMENT DISCHARGE SUMMARY PATIENT: JENNIFER ROGERS UNIT: [id number] ADM DATE: 07/15/18 AGE: 82 : 37 SEX: F ROOM/BED: D.2223 AUTHOR: VERONICA,DOC PHYSICIAN: REFERRING PHYSICIAN: IONA YOUNG MD DATE OF SERVICE: 07/16/18 Discharge Plan Patient Name: JENNIFER ROGERS Facility: [facility]:[place] : 1935 Planned Disposition: Inpatient Rehab Facility Anticipated Discharge Date: Discharge Date: Expected LOS: Initial Reviewer: [email or web address] Initial Review Date: 07/15/2018 Generated: 07/16/18 3:32 pm Comments DCP- Discharge Planning Updated by [id number]: Diony Contrerasawais on 07/16/18 1:[address] I spoke with patient's niece (Carla) and she states that she would like a referral to [facility]. She states she has already talked with Leni. I called Leni and informed her that the niece is wanting her to come there. Leni states she will have 20 days of skilled therapy. I informed the daughter. I also informed the daughter that they are also a nonsmoking facility. She states she does not want her aunt to smoke. CM will continue to follow and assist with discharge planning/needs. DCP- Discharge Planning Updated by [id number]: Ruthie Turner on 07/16/18 9:[address] LATE ENTRY 07/15/18 1300 CM MET W/ PATIENT'S NIECE AND CARLA CHAWLA. SHE HAD REQUESTED TO SPEAK WITH THE ANTIQUE FURNITURE RESTORER. HER AUNT HAD BEEN LIVING AT [facility] PRIOR TO ADMISSION. SHE WAS JUST DISCHARGED 07/11/18. SHE WAS CONFUSED AND WEAK POST DISCHARGE. PRIOR TO HER ILLNESS SHE HAD MANAGED WELL PER THE NIECE. DISCUSSED DISCHARGE OPTIONS. WILL HAVE AN ACUTE REHAB EVAL AND SKILLED EVAL. THE NIECE WOULD LIKE [facility] FOR ACUTE REHAB AND [facility] FOR SKILLED REHAB IF NOT ACCEPTED FOR ACUTE. THE PATIENT'S FACE SHEET HAS HER EMERGENCY CONTACT. CM FAXED CORRECTION TO ADMISSION FOR CORRECTION. THE NIECE 'S CONTACT PHONE NUMBER IS [phone], CARLA ASCENCIO. THE NIECE IS VISITING FROM OUT OF STATE. SHE STATES SHE PROVIDED POA PAPERWORK THE LAST ADMISSION. PT'S ONLY OTHER LIVING RELATIVE IS HER BROTHER , CHAS HORNER. JULIO FAXED REFERRAL TO [facility]. PATIENT WILL NEED AND OT CONSULT AND REHAB PRESCREEN. DISCUSSED WITH WEEKDAY DIONY KIM. Last DP export: 07/16/18 9:26 a Patient Name: JENNIFER ROGERS Page [phone] at 1432 All edits/amendments must be made on the electronic document DICTATION DATE: 07/16/181431 MATERIAL CONTROLLER: JURGEN 07/16/181431 RPT#: [id number] DC DATE: STATUS: ADM IN [facility] [address] [place] [address] END OF REPORT
[2018-07-16 14:36] VITALS: Ht 170.2 cm; Wt 81.6 kg
[2018-07-16 18:57] VITALS: BP 152/63
[2018-07-16 20:00] VITALS: BP 134/72
--- NOTE | 2018-07-16 20:00 | NUR ---
AWAKE ALERT BED ALARM SOUNDING FOUND PATIENT CLIMBING OUT OF BED. ASSISTED BACK TO BED SR UP X3. IV PATENT LEFT WRIST WITH NS AT 75CC'S/HR. SITE CLEAR. PATIENT HAS SMALL AMOUNT BLOODY VAGINAL AREA. THIS IS OLD. PATIENT TAKES OFF SCD'S.
--- NOTE | 2018-07-16 21:30 | NUR ---
MEDS GIVEN PER MAR.
--- NOTE | 2018-07-16 23:33 | NUR ---
FOUND PATIENT TRYING TO CLIMB OUT OF BED JASS ALARM SOUNDING ASSISTED BACK TO BED SR UP X3 RESET BED ALARM.
--- NOTE | 2018-07-17 00:37 | NUR ---
PATIENT CLIMBING OUT OF BED BED ALARM SOUNDING ASSISTED BACK TO BED SR UP X3 CALL LIGHT WITHIN REACH.
[2018-07-17 04:00] VITALS: BP 173/75
[2018-07-17 05:24] LABS: BASOPHILS 0 % (0-2); EOSINOPHILS 0.2 % (0-7); HEMATOCRIT 38.5 % (36.0-48.0); HEMOGLOBIN 12.8 g/dL (12-16); IMMATURE GRANULOCYTES 0.5 % (0-5); LYMPHOCYTES 27.5 % (15-50); MCH 29.2 pg (26.0-34.0); MCHC 33.2 g/dL (31.0-37.0); MCV 87.9 fL (80.0-100.0); MEAN PLATELET VOLUME 11.4 fL (7.4-10.4); MONOCYTES 5.8 % (2-11); PLATELET COUNT 178 10x3/uL (130-400); RBC 4.38 10x6/uL (4.00-5.40); RDW 12.9 % (11.5-14.5); WBC 5.9 10x3/uL (4.8-10.8)
[2018-07-17 05:46] LABS: CALC OSMOLALITY 278 mosm/kg (275-300); CALCIUM 7.9 mg/dL (8.5-10.1); CARBON DIOXIDE 24.5 mmol/L (21.0-32.0); CHLORIDE - SERUM 104 mmol/L (98-107); CREATININE - SERUM 0.7 mg/dL (0.6-1.3); GLUCOSE 110 mg/dL (74-106); POTASSIUM - SERUM 3.3 mmol/L (3.5-5.1); SODIUM 139 mmol/L (136-145); eGFR NON AFRICAN AMERICAN 85 mL/min (90-120)
[2018-07-17 05:48] LABS: UREA NITROGEN 12 mg/dL (7-18)
--- NOTE | 2018-07-17 07:30 | NUR ---
PT SITTING UP IN CHAIR AT BEDSIDE. NO ACUTE DISTRESS NOTED. CHAIR ALARM IN PLACE AND ON. DENIES PAIN AT THIS TIME. MOOD PLEASANT. DENIES FURTHER NEEDS AT THIS TIME. CL WITHIN REACH. ENCOURAGED TO CALL WITH NEEDS. CONTINUE POC
[2018-07-17 09:36] VITALS: BP 189/89
--- NOTE | 2018-07-17 11:26 | NUR ---
OT NOTE: PT DOING BETTER TODAY. PT [facility] AND MILD CONFUSION NOTED. ABLE TO PERFORM BED MOB WITH MIN ASSIST; STANDING ACT WITH MIN ASSISST AND USE OF RW FOR UE SUPPORT. ABLE TO DAMON AND DOFF GOWN WITH SET UP; ABLE TO DAMON AND DOFF PULL UPS WITH MIN ASSIST. PT INCONT OF URINE BUT WAS UNAWARE. MIN ASSIST TO DAMON SOCKS. ABLE TO BATH UPPER BODY WITH WASH CLOTH AND SET UP. TRANSFERS TO CHAIR, BED, AND TOILET WITH MIN ASSIST AND USE OF RW. PT AMB THROUGHOUT HALLWAY TO IMPROVE FUNCTIONAL ENDURANCE. DOM [place], OTR/L
[2018-07-17] MEDS ORDERED: ESTRACE 0.0142.5 GM VG (12:01)
[2018-07-17] MEDS ORDERED: HYDROCODON-ACE1 EAC2 PO (12:03)
--- NOTE | 2018-07-17 12:09 | MORECARE ---
CASE MANAGEMENT DISCHARGE SUMMARY PATIENT: JENNIFER ROGERS UNIT: [id number] ADM DATE: 07/15/18 AGE: 82 : 37 SEX: F ROOM/BED: D.2223 AUTHOR: VERONICA,DOC PHYSICIAN: REFERRING PHYSICIAN: IONA YOUNG MD DATE OF SERVICE: 07/17/18 Discharge Plan Patient Name: JENNIFER ROGERS Facility: [facility]:[place] : 1935 Planned Disposition: Inpatient Rehab Facility Anticipated Discharge Date: Discharge Date: Expected LOS: Initial Reviewer: [email or web address] Initial Review Date: 07/15/2018 Generated: 07/17/18 1:09 pm Comments DCP- Discharge Planning Updated by [email or web address]: Diony Winter on 07/16/18 1:[address] I spoke with patient's niece (Carla) and she states that she would like a referral to [facility]. She states she has already talked with Leni. I called Leni and informed her that the niece is wanting her to come there. Leni states she will have 20 days of skilled therapy. I informed the daughter. I also informed the daughter that they are also a nonsmoking facility. She states she does not want her aunt to smoke. CM will continue to follow and assist with discharge planning/needs. DCP- Discharge Planning Updated by [email or web address]: Ruthie Turner on 07/16/18 9:[address] LATE ENTRY 07/15/18 1300 CM MET W/ PATIENT'S NIECE AND CARLA CHAWLA. SHE HAD REQUESTED TO SPEAK WITH THE PONY RIDE OPERATOR. HER AUNT HAD BEEN LIVING AT [facility] PRIOR TO ADMISSION. SHE WAS JUST DISCHARGED 07/11/18. SHE WAS CONFUSED AND WEAK POST DISCHARGE. PRIOR TO HER ILLNESS SHE HAD MANAGED WELL PER THE NIECE. DISCUSSED DISCHARGE OPTIONS. WILL HAVE AN ACUTE REHAB EVAL AND SKILLED EVAL. THE NIECE WOULD LIKE [facility] FOR ACUTE REHAB AND [facility] FOR SKILLED REHAB IF NOT ACCEPTED FOR ACUTE. THE PATIENT'S FACE SHEET HAS HER EMERGENCY CONTACT. CM FAXED CORRECTION TO ADMISSION FOR CORRECTION. THE NIECE 'S CONTACT PHONE NUMBER IS [phone], CARLA ASCENCIO. THE NIECE IS VISITING FROM OUT OF STATE. SHE STATES SHE PROVIDED POA PAPERWORK THE LAST ADMISSION. PT'S ONLY OTHER LIVING RELATIVE IS HER BROTHER , CHAS HORNER. CM FAXED REFERRAL TO [facility]. PATIENT WILL NEED AND OT CONSULT AND REHAB PRESCREEN. DISCUSSED WITH WEEKDAY DIONY KIM. External Providers External Provider: [facility] Next Contact Date: Service Request Date: Service Type: Resolution: Reviewer: Comments: Last DP export: 07/16/18 1:32 p Patient Name: JENNIFER ROGERS Page [id number] at 1209 All edits/amendments must be made on the electronic document DICTATION DATE: 07/17/181207 ROLL FORMER: JURGEN 07/17/181207 RPT#: [id number] DC DATE: STATUS: ADM IN [facility] [address] [place] [address] END OF REPORT
--- NOTE | 2018-07-17 12:19 | MORECARE ---
CASE MANAGEMENT DISCHARGE SUMMARY PATIENT: JENNIFER ROGERS UNIT: [id number] ADM DATE: 07/15/18 AGE: 82 : 37 SEX: F ROOM/BED: D.2223 AUTHOR: VERONICA,DOC PHYSICIAN: REFERRING PHYSICIAN: IONA YOUNG MD DATE OF SERVICE: 07/17/18 Discharge Plan Patient Name: JENNIFER ROGERS Facility: [facility]:[place] : 1935 Planned Disposition: Inpatient Rehab Facility Anticipated Discharge Date: Discharge Date: Expected LOS: Initial Reviewer: [email or web address] Initial Review Date: 07/15/2018 Generated: 07/17/18 1:19 pm Comments DCP- Discharge Planning Updated by [email or web address]: Diony Contrerasawais on 07/17/18 11:[address] Leni at [facility] states that they can accept patient. I informed Alicia Aguirre. Alicia states she does not need to be in isolation at the SNF. States she was on it here for N/V/D but she has not had a BM since admission. Her niece is in the room and patient and niece agree with discharge today. Leni is to call back with a bead picker time. She will be going to a skilled bed. DCP- Discharge Planning Updated by [email or web address]: Diony Max on 07/16/18 1:[address] I spoke with patient's niece (Carla) and she states that she would like a referral to [facility]. She states she has already talked with Leni. I called Leni and informed her that the niece is wanting her to come there. Leni states she will have 20 days of skilled therapy. I informed the daughter. I also informed the daughter that they are also a nonsmoking facility. She states she does not want her aunt to smoke. CM will continue to follow and assist with discharge planning/needs. DCP- Discharge Planning Updated by [email or web address]: Ruthie Turner on 07/16/18 9:[address] LATE ENTRY 07/15/18 1300 CM MET W/ PATIENT'S NIECE AND CARLA CHAWLA. SHE HAD REQUESTED TO SPEAK WITH THE TILE AND MARBLE INSTALLER. HER AUNT HAD BEEN LIVING AT [facility] PRIOR TO ADMISSION. SHE WAS JUST DISCHARGED 07/11/18. SHE WAS CONFUSED AND WEAK POST DISCHARGE. PRIOR TO HER ILLNESS SHE HAD MANAGED WELL PER THE NIECE. DISCUSSED DISCHARGE OPTIONS. WILL HAVE AN ACUTE REHAB EVAL AND SKILLED EVAL. THE NIECE WOULD LIKE [facility] FOR ACUTE REHAB AND [facility] FOR SKILLED REHAB IF NOT ACCEPTED FOR ACUTE. THE PATIENT'S FACE SHEET HAS HER EMERGENCY CONTACT. CM FAXED CORRECTION TO ADMISSION FOR CORRECTION. THE NIECE 'S CONTACT PHONE NUMBER IS [phone], CARLA ASCENCIO. THE NIECE IS VISITING FROM OUT OF STATE. SHE STATES SHE PROVIDED POA PAPERWORK THE LAST ADMISSION. PT'S ONLY OTHER LIVING RELATIVE IS HER BROTHER , CHAS HORNER. CM FAXED REFERRAL TO [facility]. PATIENT WILL NEED AND OT CONSULT AND REHAB PRESCREEN. DISCUSSED WITH WEEKDAY DIONY KIM. Last DP export: 07/17/18 11:09 a Patient Name: JENNIFER ROGERS Page [phone] at 1219 All edits/amendments must be made on the electronic document DICTATION DATE: 07/17/181218 FOLDER STITCHER OPERATOR: JURGEN 07/17/181218 RPT#: [id number] DC DATE: STATUS: ADM IN [facility] [address] [place] [address] END OF REPORT
--- NOTE | 2018-07-17 13:20 | NUR ---
PT PREPARING FOR DISCHARGE. POA AT BEDSIDE. SALINE D/C'D FROM RIGHT HAND, CATH INTACT. DISCUSSED DISCHARGE PAPERS WITH PT AND FAMILY. DENIES QUESTIONS AT THIS TIME.
--- NOTE | 2018-07-17 13:30 | NUR ---
PT TAKEN OUT VIA W/C WITH [facility] STAFF. ALL PERSONAL POSESSIONS TAKEN WITH FAMILY.
--- NOTE | 2018-07-18 15:45 | MORECARE ---
CASE MANAGEMENT DISCHARGE SUMMARY PATIENT: JENNIFER ROGERS UNIT: [id number] ADM DATE: 07/15/18 AGE: 82 : 37 SEX: F ROOM/BED: D.2223 AUTHOR: VREONICA,DOC PHYSICIAN: REFERRING PHYSICIAN: IONA YOUNG MD DATE OF SERVICE: 07/18/18 Discharge Plan Patient Name: JENNIFER ROGERS Facility: [facility]:[place] : 1935 Planned Disposition: Inpatient Rehab Facility Anticipated Discharge Date: Discharge Date: 07/17/2018 Expected LOS: 0 Initial Reviewer: [email or web address] Initial Review Date: 07/15/2018 Generated: 07/18/18 4:45 pm Comments DCP- Discharge Planning Updated by [email or web address]: Diony Max on 07/17/18 11:[address] Leni at [facility] states that they can accept patient. I informed Alicia Timothy. Alicia states she does not need to be in isolation at the SNF. States she was on it here for N/V/D but she has not had a BM since admission. Her niece is in the room and patient and niece agree with discharge today. Leni is to call back with a picker feeder time. She will be going to a skilled bed. DCP- Discharge Planning Updated by [id number]: Diony Max on 07/16/18 1:[address] I spoke with patient's niece (Carla) and she states that she would like a referral to [facility]. She states she has already talked with Leni. I called Leni and informed her that the niece is wanting her to come there. Leni states she will have 20 days of skilled therapy. I informed the daughter. I also informed the daughter that they are also a nonsmoking facility. She states she does not want her aunt to smoke. CM will continue to follow and assist with discharge planning/needs. DCP- Discharge Planning Updated by [email or web address]: Ruthie Turner on 07/16/18 9:[address] LATE ENTRY 07/15/18 1300 CM MET W/ PATIENT'S NIECE AND CARLA CHAWLA. SHE HAD REQUESTED TO SPEAK WITH THE SKEIN YARN DYER HELPER. HER AUNT HAD BEEN LIVING AT [facility] PRIOR TO ADMISSION. SHE WAS JUST DISCHARGED 07/11/18. SHE WAS CONFUSED AND WEAK POST DISCHARGE. PRIOR TO HER ILLNESS SHE HAD MANAGED WELL PER THE NIECE. DISCUSSED DISCHARGE OPTIONS. WILL HAVE AN ACUTE REHAB EVAL AND SKILLED EVAL. THE NIECE WOULD LIKE [facility] FOR AC[facility] REHAB AND [facility] FOR SKILLED REHAB IF NOT ACCEPTED FOR ACUTE. THE PATIENT'S FACE SHEET HAS HER EMERGENCY CONTACT. CM FAXED CORRECTION TO ADMISSION FOR CORRECTION. THE NIECE 'S CONTACT PHONE NUMBER IS [phone], CARLA ASCENCIO. THE NIECE IS VISITING FROM OUT OF STATE. SHE STATES SHE PROVIDED POA PAPERWORK THE LAST ADMISSION. PT'S ONLY OTHER LIVING RELATIVE IS HER BROTHER , CHAS HORNER. JULIO FAXED REFERRAL TO [facility]. PATIENT WILL NEED AND OT CONSULT AND REHAB PRESCREEN. DISCUSSED WITH WEEKDAY DIONY KIM. Last DP export: 07/17/18 11:19 a Patient Name: JENNIFER ROGERS Page [id number] at 1545 All edits/amendments must be made on the electronic document DICTATION DATE: 07/18/181543 ENGINEER AUTOMATED EQUIPMENT: JURGEN 07/18/181543 RPT#: [id number] DC DATE:07/17/18 STATUS: DIS IN [facility] [address] [place] [address] END OF REPORT
== END 2018-07-17 13:30 | DRG 392 ==
LOC: D.ER 22:39 → D.MS 07-15 01:11
PROVIDERS: Family Medicine; ADMIT Internal Medicine Nephrology; ATTEND Internal Medicine Nephrology
DX: K52.9 Noninfective gastroenteritis and colitis, unspecified (principal); R41.82 Altered mental status, unspecified; D72.829 Elevated white blood cell count, unspecified; I10 Essential (primary) hypertension; J44.9 Chronic obstructive pulmonary disease, unspecified

== ENCOUNTER 2018-08-13 21:16 | Emergency (ER) | payer MEDICARE, OTHER ==
[~2018-08-13] VITALS: Ht 170.2 cm; Wt 73.2 kg
[~2018-08-13 21:16] MED LIST changes: +BREO ELLIPTA 11 EACH INH; +ESTRACE 0.0142.5 GM VG; +HYDROCODON-ACE1 EAC2 PO; +IPRAT-ALBUT 0.5-3 ML UPD; +KEFLEX500 MG PO; +LISINOPRIL20 MG PO
[2018-08-13 21:19] VITALS: Ht 170.2 cm; Wt 73.2 kg
[2018-08-13] MEDS ORDERED: CELEXA10 MG PO (21:24)
[2018-08-13] MEDS ORDERED: DONEPEZIL HCL10 MG PO (21:24)
[2018-08-13 22:34] LABS: BASOPHILS 0.1 % (0-2); EOSINOPHILS 0 % (0-7); HEMATOCRIT 43.7 % (36.0-48.0); IMMATURE GRANULOCYTES 0.4 % (0-5); LYMPHOCYTES 9.9 % (15-50); MCH 30.1 pg (26.0-34.0); MCHC 34.3 g/dL (31.0-37.0); MCV 87.6 fL (80.0-100.0); MEAN PLATELET VOLUME 11.3 fL (7.4-10.4); MONOCYTES 1.9 % (2-11); NEUTROPHILS 87.7 % (40-80); RBC 4.99 10x6/uL (4.00-5.40); WBC 16.9 10x3/uL (4.8-10.8)
[2018-08-13 22:36] LABS: PLATELET COUNT 229 10x3/uL (130-400)
[2018-08-13 22:42] LABS: ALBUMIN 2.7 g/dL (3.4-5.0); ANION GAP 13.7 mmol/L (8-16); BILIRUBIN - TOTAL 0.43 mg/dL (0.2-1.3); CALCIUM 8.8 mg/dL (8.5-10.1); CARBON DIOXIDE 28.5 mmol/L (21.0-32.0); CREATININE - SERUM 1.2 mg/dL (0.6-1.3); POTASSIUM - SERUM 4.2 mmol/L (3.5-5.1); PROTEIN - SERUM 6.7 g/dL (6.4-8.2)
[2018-08-13 23:31] LABS: AMYLASE - SERUM 44 U/L (25-115); LIPASE 95 U/L (73-393)
[2018-08-14 00:25] LABS: APPEARANCE HAZY (CLEAR); BILIRUBIN NEGATIVE (NEGATIVE); COLOR DK YELLOW (YELLOW); GLUCOSE NEGATIVE (NEGATIVE); KETONE NEGATIVE (NEGATIVE); NITRITE NEGATIVE (NEGATIVE); PROTEIN TRACE mg/dL (NEGATIVE); UROBILINOGEN NORMAL (NORMAL)
[2018-08-14 00:29] LABS: AMORPHOUS SEDIMENT >1+ /lpf (NONE SEEN); BACTERIA MODERATE /hpf (NONE SEEN); EPITHELIAL CELLS 0-5 /hpf (0-5); GRANULAR CAST 0-5 /lpf (NONE SEEN); HYALINE CAST OCC /lpf (NONE SEEN); MUCUS <1+ /lpf (NONE SEEN); RED CELLS - URINE RARE /hpf (0-5); WAXY CAST RARE /lpf (NONE SEEN); WHITE CELLS - URINE 0-5 /hpf (0-5)
[2018-08-14] MEDS ORDERED: ZOFRAN4 MG PO (05:29)
[2018-08-14 07:00] VITALS: BP 159/89
== END 2018-08-14 07:00 ==
LOC: D.ER 21:16
PROVIDERS: Family Medicine
DX: K52.9 Noninfective gastroenteritis and colitis, unspecified (principal); I10 Essential (primary) hypertension